=== PATIENT | female | born 1955 | race Caucasian/White ===

== ENCOUNTER 2018-01-12 21:59 | Emergency (ER) | payer MEDICARE ==
[~2018-01-12 21:59] MED LIST: ISOVUE-370 76%-LOCM 1 ML ONE
[2018-01-12] MEDS ORDERED: Acetaminophen 500 MG TAB ONE (22:35)
[2018-01-12 22:38] LABS: #Basophils 0.1 thou/uL (0.0-0.2); #Eosinphils 0.1 thou/uL (0.0-0.7); #Lymphocytes 2.3 thou/uL (1.20-3.40); #Monocytes 0.9 thou/uL (0.11-0.59); %Basophils 0.7 % (0.0-1.0); %Eosinophils 1.3 % (0.0-10.0); %Lymphocytes 22.2 % (21.0-51.0); %Monocytes 8.2 % (0.0-10.0); %Neutrophils 67.7 % (42.0-75.0); Hemoglobin 13.3 g/dL (12.0-16.0); Mean Corpuscular HGB CONC 34.7 g/dL (32.0-36.0); Mean Corpuscular Volume 86.4 fl (81.0-99.0); Mean Platelet Volume 7.8 fL (7.4-10.4); Platelet Count 235 thou/uL (130-400); RBC Distribution Width 11.7 % (11.5-14.5); Red Blood Cell (RBC) Count 4.44 mill/uL (4.20-5.40); White Blood Cell (WBC) Count 10.3 thou/uL (4.8-10.8)
[2018-01-12 22:47] LABS: INR-International Normal Ratio 0.9; Prothrombin Time 12.6 SEC (12.0-14.7)
[2018-01-12 22:48] LABS: PTT 25.9 SEC (22.9-36.1)
[2018-01-12 22:58] LABS: ALT (SGPT) 16 U/L (8-55); AST (SGOT) 18 U/L (5-34); Albumin 4.3 g/dL (3.4-4.8); Alkaline Phosphatase 93 U/L (40-150); Anion Gap 15 mmol/L (10-20); BUN (Urea Nitrogen) 14 mg/dL (9.8-20.1); Bilirubin, Total 0.4 mg/dL (0.2-1.2); Calc. Creatinine Clearance 0 mL/min (70-130); Calcium 9.7 mg/dL (7.8-10.44); Carbon Dioxide 27 mmol/L (23-31); Chloride 104 mmol/L (98-107); Estimated GFR-MDRD 56; Globulin 3.1 g/dL (2.4-3.5); Glucose 126 mg/dL (80-115); Potassium 3.9 mmol/L (3.5-5.1); Protein, Total 7.4 g/dL (6.0-8.3); Sodium 142 mmol/L (136-145)
[2018-01-12] MEDS ORDERED: Bacitracin Zinc 1 Packet ONE (22:58)
--- NOTE | 2018-01-12 22:58 | RAD ---
FRONTAL AND LATERAL IMAGING LEFT FEMUR 01/12/18 COMPARISON: None. HISTORY: Swelling, trauma, pain. FINDINGS: There is mild joint space narrowing and lateral acetabular osteophyte formation. There is no displace d fracture or evidence of dislocation. IMPRESSION: No evidence for an acute left femur fracture. POS: [facility]
[2018-01-12 22:59] LABS: Bilirubin Negative (Negative); Blood, Urine Negative (Negative); Clarity CLEAR (Clear); Glucose, Urine (Dipstick) Negative (Negative); Leukocyte Negative (Negative); Nitrite Negative (Negative); Protein, Urine (Dipstick) Negative (Neg-Trace); Specific Gravity, Urine 1.008 (1.002-1.036); Urobilinogen 0.2 mg/dL (0.2-1.0)
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
--- NOTE | 2018-01-12 23:01 | RAD ---
THREE VIEWS OF THE RIGHT HAND: 01/12/18 COMPARISON: None. HISTORY: Trauma, pain. FINDINGS: There is a subtle obliquely oriented fracture at the base of the first proximal phalanx extending int o the first metacarpophalangeal joint. There is no evidence for dislocation. This fracture is best seen on the image 3 of 3, located along t he medial base of the first proximal phalanx. IMPRESSION: Fracture involving the base of the first proximal phalanx extending into the first metacarpophalangea l joint. POS: [facility]
--- NOTE | 2018-01-12 23:02 | RAD ---
LEFT KNEE FOUR VIEWS: 01/12/18 COMPARISON: None. HISTORY: Pain, swelling. FINDINGS: No knee joint effusion. No displaced fracture or evidence of dislocation is seen. IMPRESSION: No acute findings. POS: [facility]
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
== END 2018-01-13 01:15 | disposition home or self-care (01) ==
LOC: ERS 21:59
DX: S62.231A Other displaced fracture of base of first metacarpal bone, right hand, initial encounter for closed fracture (principal); S62.511A Displaced fracture of proximal phalanx of right thumb, initial encounter for closed fracture; E11.9 Type 2 diabetes mellitus without complications; E78.5 Hyperlipidemia, unspecified; I10 Essential (primary) hypertension; Z79.899 Other long term (current) drug therapy; V86.59XA Driver of other special all-terrain or other off-road motor vehicle injured in nontraffic accident, initial encounter; Z86.73 Personal history of transient ischemic attack (TIA), and cerebral infarction without residual deficits
CPT/HCPCS: 29125; 70450; 74177; 80053; 81003; 85025; 85610; 85730